=== PATIENT | male | born 1970 | race Caucasian/White ===

== ENCOUNTER 2017-04-19 11:48 | Emergency (ER) | payer OTHER ==
[~2017-04-19] VITALS: Wt 117.9 kg
[~2017-04-19 11:48] MED LIST: ULTRAM50 MG PO
[2017-04-19] MEDS ORDERED: NAPROSYN500 MG PO (12:05)
== END 2017-04-19 14:17 | disposition home or self-care (01) ==
LOC: ED 11:48
DX: M25.512 Pain in left shoulder (principal); R03.0 Elevated blood-pressure reading, without diagnosis of hypertension; Z88.0 Allergy status to penicillin

== ENCOUNTER 2018-03-25 19:02 | Emergency (ER) | payer OTHER ==
[~2018-03-25] VITALS: Ht 170.1 cm; Wt 136.1 kg
[~2018-03-25 19:02] MED LIST changes: +NAPROSYN500 MG PO
[2018-03-25] MEDS ORDERED: CLINDAMYCIN HC300 MG PO (19:18)
== END 2018-03-25 19:23 | disposition home or self-care (01) ==
LOC: ED 19:02
DX: L03.115 Cellulitis of right lower limb (principal); Z88.0 Allergy status to penicillin